=== PATIENT | female | born 1970 | race Hispanic/Latino ===

== ENCOUNTER 2016-07-22 02:39 | Emergency (ER) | payer OTHER ==
[2016-07-22 03:08] LABS: Basophils % (Auto) 0.4 % (0.0-1.8); Eosinophils % (Auto) 3.8 % (0.0-4.3); Mean Corpuscular HGB Conc 33 % (30-34); Mean Corpuscular Hemoglobin 30 pg (28-32); Mean Corpuscular Volume 89 fl (79-97); Red Blood Count 5.05 M/mm3 (3.65-5.03); Red Cell Distribution Width 14.6 % (13.2-15.2)
[2016-07-22 03:30] LABS: Blood Urea Nitrogen 4 mg/dL (7-17); Calcium 9.2 mg/dL (8.4-10.2); Carbon Dioxide 22 mmol/L (22-30); Glucose 83 mg/dL (65-100)
[2016-07-22 03:31] LABS: Chloride 93.3 mmol/L (98-107); Potassium 3.7 mmol/L (3.6-5.0); Sodium 135 mmol/L (137-145)
[2016-07-22 03:43] LABS: Anion Gap 23 mmol/L
[2016-07-22 03:46] LABS: Urine Drugs of Abuse Note Disclamer
[2016-07-22 03:56] LABS: Bacteria,Urine 2+ /HPF (Negative); Bilirubin,Urine NEG (Negative); Blood,Urine SM (Negative); Ketones,Urine NEG (Negative); Leukocyte Esterase,Urine LG (Negative); Mucus,Urine 1+ /HPF; Nitrite,Urine NEG (Negative); Protein,Urine <15 mg/dL mg/dL (Negative); Urobilinogen,Urine < 2.0 mg/dL (<2.0)
[2016-07-22 04:20] LABS: Platelet Count 352 K/mm3 (140-440)
--- NOTE | 2016-07-22 05:21 | Emergency Department Report ---
ED Psych HPI - General Chief Complaint: Psych Stated Complaint: MH, SUICIDE Time Seen by Provider: 07/22/16 05:11 Source: patient Mode of arrival: Ambulatory Limitations: Altered Mental Status - History of Present Illness Initial Comments: 46-year-old female presents to the emergency department for mental health evaluation. Per report, the patient was dropped off at the front door by a friend. Reportedly, the patient has been stating all day that she wants to kill herself. No plan has been expressed. Further history is unable to be obtained from patient due to her current clinical condition. MD Complaint: suicidal ideation -: unknown Associated Psychiatric Symptoms: racing thoughts History of same: Yes Quality: constant Improves With: none Worsens With: none - Related Data Home Medications Medication Instructions Recorded Confirmed Last Taken ALPRAZolam [Xanax TAB] 2 mg PO PRN PRN 03/03/16 07/22/16 Unknown Cogentin 0 mg PO DAILY 03/03/16 07/22/16 Unknown Venlafaxine [Effexor] 75 mg PO DAILY 03/03/16 07/22/16 Unknown risperiDONE [RisperDAL] 2 mg PO BID 03/03/16 07/22/16 Unknown Allergies Allergy/AdvReac Type Severity Reaction Status Date / Time No Known Allergies Allergy Verified 03/03/16 18:03 ED Review of Systems ROS: Stated complaint: MH, SUICIDE Other details as noted in HPI Comment: Unobtainable due to pts medical conditions ED Past Medical Hx - Past Medical History Previous Medical History?: Yes Hx Heart Attack/AMI: Yes (2014) Hx Psychiatric Treatment: Yes (schizophrenia, bipolar) Additional medical history: High cholesterol - Surgical History Past Surgical History?: Yes Hx Breast Surgery: Yes (augmentation) Additional Surgical History: L leg-ortho. cesearen x2 - Family History Family history: no significant - Social History Smoking Status: Current Every Day Smoker Substance Use Type: Alcohol - Medications Home Medications: Home Medications Medication Instructions Recorded Confirmed Last Taken Type ALPRAZolam [Xanax TAB] 2 mg PO PRN PRN 03/03/16 07/22/16 Unknown History Cogentin 0 mg PO DAILY 03/03/16 07/22/16 Unknown History Venlafaxine [Effexor] 75 mg PO DAILY 03/03/16 07/22/16 Unknown History risperiDONE [RisperDAL] 2 mg PO BID 03/03/16 07/22/16 Unknown History ED Physical Exam - General Limitations: No Limitations General appearance: alert, in no apparent distress - Head Head exam: Present: atraumatic, normocephalic - Eye Eye exam: Present: normal appearance, PERRL, EOMI - ENT ENT exam: Present: normal exam, normal orophraynx, mucous membranes moist - Neck Neck exam: Present: normal inspection, full ROM. Absent: tenderness - Respiratory Respiratory exam: Present: normal lung sounds bilaterally. Absent: respiratory distress - Cardiovascular Cardiovascular Exam: Present: regular rate, normal rhythm, normal heart sounds - GI/Abdominal GI/Abdominal exam: Present: soft, normal bowel sounds. Absent: distended, tenderness - Extremities Exam Extremities exam: Present: normal inspection, full ROM. Absent: tenderness - Back Exam Back exam: Present: normal inspection, full ROM. Absent: tenderness - Neurological Exam Neurological exam: Present: alert, oriented X3. Absent: motor sensory deficit - Psychiatric Psychiatric exam: Present: agitated, suicidal ideation, other (Reising, tangential thought process noted.) - Skin Skin exam: Present: warm, dry, intact ED Course Vital Signs 07/22/16 07/22/16 02:46 04:44 Temperature 97.6 F 98.0 F Pulse Rate 99 H 98 H Respiratory 18 18 Rate Blood Pressure 145/101 Blood Pressure 116/85 [Left] O2 Sat by Pulse 100 98 Oximetry - Reevaluation(s) Reevaluation #1: 07/22/16 05:24 Lab results reviewed. Patient has been medically cleared. Form 1013 has been signed and placed on the chart. Patient is waiting mental health evaluation for inpatient placement. ED Medical Decision Making - Lab Data Result diagrams: 07/22/16 02:47 07/22/16 02:47 - EKG Data -: EKG Interpreted by Me EKG shows normal: sinus rhythm, axis, QRS complexes, ST-T waves Rate: normal - EKG Data When compared to previous EKG there are: no significant change Interpretation: unchanged when compared t (03/03/2016), other (prolonged QT interval) - Differential Diagnosis suicidal ideation, schizoaffective disorder Critical care attestation.: If time is entered above; I have spent that time in minutes in the direct care of this critically ill patient, excluding procedure time. ED Disposition Clinical Impression: Suicidal ideations, Methamphetamine abuse Schizoaffective disorder Qualifiers: Schizoaffective disorder type: bipolar Qualified Code(s): F25.0 - Schizoaffective disorder, bipolar type Disposition: DC/TX PSY HOSP/PSY UNIT Is pt being admited?: No Condition: Stable Time of Disposition: 05:25
[2016-07-22] MEDS ORDERED: ATIVAN IM ONE (18:18)
[2016-07-22] MEDS ORDERED: TYLENOL PO PRN (18:18)
[2016-07-22] MEDS ORDERED: ALUM-MAG HYDROX-SIMETH 200-200-20MG/5ML PO PRN (18:18)
[2016-07-22] MEDS ORDERED: MILK OF MAGNESIA PO PRN (18:18)
[2016-07-22] MEDS ORDERED: XANAX PO PRN (20:00)
[2016-07-22] MEDS ORDERED: NON-FORMULARY (Alprazolam [Xanax Tab] 2 MG) PO PRN (20:00)
[2016-07-22] MEDS ORDERED: NON-FORMULARY (Risperidone [Risperdal] 2 MG) PO SCH (22:00)
[2016-07-22] MEDS: RisperDAL PO SCH (22:27)
[2016-07-23] MEDS: RisperDAL PO SCH ×2 (10:06→22:00)
[2016-07-23] MEDS: ATIVAN IM PRN (17:16)
[2016-07-24] MEDS: RisperDAL PO SCH ×2 (10:16→22:16)
[2016-07-24] MEDS: ATIVAN IM PRN (12:54)
[2016-07-25] MEDS: RisperDAL PO SCH ×2 (10:04→22:33)
[2016-07-25] MEDS: ATIVAN IM PRN (10:04)
[2016-07-25] MEDS ORDERED: XANAX ONE (13:37)
[2016-07-26 01:57] VITALS: BP 128/81
[2016-07-26] MEDS ORDERED: TESSALON PERLES PO ONE ×2 (06:31→06:33)
[2016-07-26] MEDS: RisperDAL PO SCH (10:05)
--- NOTE | 2016-07-26 15:50 | Emergency Department Report ---
Blank Doc - Documentation Documentation: Patient has been reevaluated by mental health. Patient is back at her baseline. She partakes in an intensive outpatient program in [facility]. Form 1013 has been rescinded per mental health recommendation. Patient will be discharged home at this time.
== END 2016-07-26 16:35 | disposition home or self-care (01) ==
LOC: ED 02:39 → EEVIPCON 02:39 → ED 07-26 16:35
DX: F25.0 Schizoaffective disorder, bipolar type (principal); R45.851 Suicidal ideations; F15.10 Other stimulant abuse, uncomplicated; I25.2 Old myocardial infarction; E78.00 Pure hypercholesterolemia, unspecified; F17.200 Nicotine dependence, unspecified, uncomplicated
CPT/HCPCS: 36415; 80048; 80307; 81001; 81025; 85025; 93005; 93010; 96372; 99285; G0480; J2060; 80320

== ENCOUNTER 2016-08-29 17:36 | Emergency (ER) | payer SELFPAY ==
--- NOTE | 2016-08-29 18:12 | Emergency Department Report ---
Chief Complaint: Psych Stated Complaint: SUICIDAL Time Seen by Provider: 08/29/16 18:09 - HPI History of Present Illness: Patient here reports that she's feeling suicidal . She does not have a plan. Patient is a poor historian. She is complaining of auditory and visual hallucination. Denies homicidal ideation. She also reported that she is a cough for the last 2 weeks. She reports that she is homeless and she doesn't have any mental health provider. She has a history of depression and she has not taken any medication. Patient reports that she just needs some help. - ROS Review of Systems: All systems are negative unless stated in HPI above. - Exam Vital Signs: Vital Signs 08/29/16 17:53 Temperature 98.0 F Pulse Rate 97 H Respiratory 20 Rate Blood Pressure 158/81 O2 Sat by Pulse 100 Oximetry Physical Exam: General: This is a 46-year-old female well-nourished. Appears sad. Psych: Positive suicidal ideation without a plan. Positive hallucination. Negative homicidal ideation. MSE screening note: Focused history and physical exam performed. Due to findings the following was ordered:see [facility] ED Medical Decision Making - Medical Decision Making Medical decision making: Patient seen by provider in triage area. Appropriate protocol activated and patient to main ED to be seen by physician. ED Disposition for MSE Condition: Stable
[2016-08-29 18:52] LABS: Urine Drugs of Abuse Note Disclamer
[2016-08-29 19:00] LABS: Bilirubin,Urine NEG (Negative); Blood,Urine NEG (Negative); Ketones,Urine 20 mg/dL (Negative); Leukocyte Esterase,Urine LG (Negative); Nitrite,Urine NEG (Negative); Protein,Urine <15 mg/dL mg/dL (Negative); Urobilinogen,Urine < 2.0 mg/dL (<2.0)
--- NOTE | 2016-08-29 19:11 | Emergency Department Report ---
ED Psych HPI - General Chief Complaint: Psych Stated Complaint: SUICIDAL Time Seen by Provider: 08/29/16 18:09 Source: patient Mode of arrival: Ambulatory - History of Present Illness Initial Comments: Patient here reports that she's feeling suicidal . She does not have a plan. Patient is a poor historian. She is complaining of auditory and visual hallucination. Denies homicidal ideation. She also reported that she is a cough for the last 2 weeks. She reports that she is homeless and she doesn't have any mental health provider. She has a history of depression and she has not taken any medication. Patient reports that she just needs some help. MD Complaint: suicidal ideation, feels depressed -: month(s) Associated Psychiatric Symptoms: depression, suicidal ideation, auditory hallucinations, visual hallucinations History of same: Yes Quality: constant Improves With: none Worsens With: none Context: other (patient has a history of methamphetamine use but she says she has not used any for a while. Denies any other use of street drugs.) Associated Symptoms: nausea, vomiting, insomnia. denies: confusion, headache, shortness of breath, syncope Treatments Prior to Arrival: none If Self Harm: admits thoughts of - Related Data Home Medications Medication Instructions Recorded Confirmed Last Taken ALPRAZolam [Xanax TAB] 2 mg PO PRN PRN 03/03/16 08/29/16 Unknown Venlafaxine [Effexor] 75 mg PO DAILY 03/03/16 08/29/16 Unknown risperiDONE [RisperDAL] 2 mg PO BID 03/03/16 08/29/16 Unknown Benztropine [Cogentin] 0.5 mg PO QHS 08/29/16 08/29/16 Unknown Allergies Allergy/AdvReac Type Severity Reaction Status Date / Time No Known Allergies Allergy Verified 08/29/16 17:51 ED Review of Systems ROS: Stated complaint: SUICIDAL Other details as noted in HPI Comment: All other systems reviewed and negative Constitutional: denies: chills, fever ENT: other (mucous membranes dry ). denies: throat pain, congestion Respiratory: no symptoms reported Cardiovascular: denies: chest pain, palpitations, dyspnea on exertion, orthopnea , edema, syncope Gastrointestinal: nausea, vomiting. denies: abdominal pain, diarrhea, constipation Genitourinary: denies: urgency, dysuria, frequency, hematuria, discharge, abnormal menses, dyspareunia Neurological: denies: headache, weakness, numbness, paresthesias, confusion, abnormal gait, vertigo Psychiatric: depression, visual hallucinations, suicidal thoughts. denies: anxiety, homicidal thoughts ED Past Medical Hx - Past Medical History Previous Medical History?: Yes Hx Heart Attack/AMI: Yes (2014) Hx Psychiatric Treatment: Yes (PARANOID schizophrenia, bipolar) Additional medical history: High cholesterol - Surgical History Past Surgical History?: Yes Hx Breast Surgery: Yes (augmentation) Additional Surgical History: L leg-ortho. cesearen x2 - Family History Family history: hypertension - Social History Smoking Status: Current Every Day Smoker Substance Use Type: Alcohol - Medications Home Medications: Home Medications Medication Instructions Recorded Confirmed Last Taken Type ALPRAZolam [Xanax TAB] 2 mg PO PRN PRN 03/03/16 08/29/16 Unknown History Venlafaxine [Effexor] 75 mg PO DAILY 03/03/16 08/29/16 Unknown History risperiDONE [RisperDAL] 2 mg PO BID 03/03/16 08/29/16 Unknown History Benztropine [Cogentin] 0.5 mg PO QHS 08/29/16 08/29/16 Unknown History ED Physical Exam - General Limitations: No Limitations General appearance: alert, in no apparent distress - Head Head exam: Present: atraumatic, normocephalic, normal inspection - Eye Eye exam: Present: normal appearance, PERRL, EOMI. Absent: periorbital swelling , periorbital tenderness Pupils: Present: normal accommodation - ENT ENT exam: Present: normal orophraynx, mucous membranes dry, TM's normal bilaterally, normal external ear exam - Neck Neck exam: Present: normal inspection, full ROM. Absent: tenderness, meningismus, lymphadenopathy - Respiratory Respiratory exam: Present: normal lung sounds bilaterally. Absent: respiratory distress, chest wall tenderness - Cardiovascular Cardiovascular Exam: Present: regular rate, normal rhythm, normal heart sounds - GI/Abdominal GI/Abdominal exam: Present: soft, normal bowel sounds. Absent: distended, tenderness, guarding, rebound, rigid - Extremities Exam Extremities exam: Present: normal inspection, full ROM, normal capillary refill. Absent: tenderness, pedal edema, joint swelling, calf tenderness - Back Exam Back exam: Present: normal inspection, full ROM. Absent: tenderness, CVA tenderness (R), CVA tenderness (L), muscle spasm, paraspinal tenderness, vertebral tenderness, rash noted - Neurological Exam Neurological exam: Present: alert, oriented X3, normal gait, reflexes normal. Absent: motor sensory deficit - Psychiatric Psychiatric exam: Present: depressed, flat affect, suicidal ideation. Absent: agitated, anxious, manic, homicidal ideation - Skin Skin exam: Present: warm, dry, intact, normal color. Absent: rash ED Course Vital Signs 08/29/16 08/29/16 08/29/16 17:53 19:13 19:45 Temperature 98.0 F 98.2 F Pulse Rate 97 H 126 H Respiratory 20 18 20 Rate Blood Pressure 158/81 Blood Pressure 152/92 [Left] O2 Sat by Pulse 100 99 99 Oximetry - Reevaluation(s) Reevaluation #1: 08/29/16 21:07 Patient to receive IV fluids 1 L with Zofran IV. Reevaluation #2: 08/29/16 21:08 Urine positive for amphetamines, cocaine and marijuana. [address] Rao 08/29/16 21:08 Reevaluation #3: 08/30/16 00:03 Patient stable. Seen by mental health for evaluation. Med reconciliation completed. Currently receiving IV fluid and received Zofran 4 mg IV. ED Medical Decision Making - Lab Data Result diagrams: 08/29/16 19:10 08/29/16 19:10 Lab Results 08/29/16 08/29/16 08/29/16 Range/Units 18:47 18:47 19:10 WBC (4.5-11.0) K/mm3 RBC (3.65-5.03) M/mm3 Hgb (10.1-14.3) gm/dl Hct (30.3-42.9) % MCV (79-97) fl MCH (28-32) pg MCHC (30-34) % RDW (13.2-15.2) % Plt Count (140-440) K/mm3 Lymph % (Auto) (13.4-35.0) % [place] % (Auto) (0.0-7.3) % Eos % (Auto) (0.0-4.3) % Baso % (Auto) (0.0-1.8) % Lymph # (1.2-5.4) K/mm3 [place] # (0.0-0.8) K/mm3 Eos # (0.0-0.4) K/mm3 Baso # (0.0-0.1) K/mm3 Seg Neutrophils % (40.0-70.0) % Seg Neutrophils # (1.8-7.7) K/mm3 Sodium 134 L (137-145) mmol/L Potassium 3.5 L (3.6-5.0) mmol/L Chloride 89.1 L (98-107) mmol/L Carbon Dioxide 24 (22-30) mmol/L Anion Gap 24 mmol/L BUN 7 (7-17) mg/dL Creatinine 0.6 L (0.7-1.2) mg/dL Estimated GFR > 60 ml/min BUN/Creatinine Ratio 11.66 % Glucose 108 H (65-100) mg/dL Calcium 9.2 (8.4-10.2) mg/dL Urine Color Yellow (Yellow) Urine Turbidity Slightly-cloudy (Clear) Urine pH 6.0 (5.0-7.0) Ur Specific [place] 1.017 (1.003-1.030) Urine Protein <15 mg/dl (Negative) mg/dL Urine Glucose (UA) Neg (Negative) mg/dL Urine Ketones 20 (Negative) mg/dL Urine Blood Neg (Negative) Urine Nitrite Neg (Negative) Urine Bilirubin Neg (Negative) Urine Urobilinogen < 2.0 (<2.0) mg/dL Ur Leukocyte Esterase Lg (Negative) Urine WBC (Auto) 6.0 (0.0-6.0) /HPF Urine RBC (Auto) 13.0 (0.0-6.0) /HPF U Epithel Cells (Auto) 9.0 (0-13.0) /HPF Urine HCG, Qual Negative (Negative) Urine Opiates Screen Presumptive negative Urine Methadone Screen Presumptive negative Ur Barbiturates Screen Presumptive negative Ur Phencyclidine Scrn Presumptive negative Ur Amphetamines Screen Presumptive positive U Benzodiazepines Scrn Presumptive negative Urine Cocaine Screen Presumptive positive U Marijuana (THC) Screen Presumptive positive Drugs of Abuse Note Disclamer Plasma/Serum Alcohol (0-0.07) gm% 08/29/16 08/29/16 Range/Units 19:10 19:10 WBC 8.8 (4.5-11.0) K/mm3 RBC 4.30 (3.65-5.03) M/mm3 Hgb 12.8 (10.1-14.3) gm/dl Hct 38.3 (30.3-42.9) % MCV 89 (79-97) fl MCH 30 (28-32) pg MCHC 34 (30-34) % RDW 15.3 H (13.2-15.2) % Plt Count 360 (140-440) K/mm3 Lymph % (Auto) 11.8 L (13.4-35.0) % [place] % (Auto) 9.3 H (0.0-7.3) % Eos % (Auto) 0.1 (0.0-4.3) % Baso % (Auto) 0.2 (0.0-1.8) % Lymph # 1.0 L (1.2-5.4) K/mm3 [place] # 0.8 (0.0-0.8) K/mm3 Eos # 0.0 (0.0-0.4) K/mm3 Baso # 0.0 (0.0-0.1) K/mm3 Seg Neutrophils % 78.6 H (40.0-70.0) % Seg Neutrophils # 6.9 (1.8-7.7) K/mm3 Sodium (137-145) mmol/L Potassium (3.6-5.0) mmol/L Chloride (98-107) mmol/L Carbon Dioxide (22-30) mmol/L Anion Gap mmol/L BUN (7-17) mg/dL Creatinine (0.7-1.2) mg/dL Estimated GFR ml/min BUN/Creatinine Ratio % Glucose (65-100) mg/dL Calcium (8.4-10.2) mg/dL Urine Color (Yellow) Urine Turbidity (Clear) Urine pH (5.0-7.0) Ur Specific [place] (1.003-1.030) Urine Protein (Negative) mg/dL Urine Glucose (UA) (Negative) mg/dL Urine Ketones (Negative) mg/dL Urine Blood (Negative) Urine Nitrite (Negative) Urine Bilirubin (Negative) Urine Urobilinogen (<2.0) mg/dL Ur Leukocyte Esterase (Negative) Urine WBC (Auto) (0.0-6.0) /HPF Urine RBC (Auto) (0.0-6.0) /HPF U Epithel Cells (Auto) (0-13.0) /HPF Urine HCG, Qual (Negative) Urine Opiates Screen Urine Methadone Screen Ur Barbiturates Screen Ur Phencyclidine Scrn Ur Amphetamines Screen U Benzodiazepines Scrn Urine Cocaine Screen U Marijuana (THC) Screen Drugs of Abuse Note Plasma/Serum Alcohol < 0.01 (0-0.07) gm% - Medical Decision Making Collaborate with Dr. Salvador ED course: Patient presented to emergency room with complaints of suicidal ideation without a plan.She is homeless and also complaining of nausea. Reports that she's not swallowed a mental health or psychiatry for a while because she is homeless. Denies taking any medication at present. Patient in emergency room awaiting placement to mental health facility. Medication reconciliation done by Dr. Salvador. Patient is currently receiving IV fluid and received Zofran 4 mg IV for nausea. Lab results positive for marijuana, amphetamines and cocaine. Potassium and sodium mildly decreased. Patient stable. Critical care attestation.: If time is entered above; I have spent that time in minutes in the direct care of this critically ill patient, excluding procedure time. ED Disposition Clinical Impression: Suicidal ideations, Polysubstance abuse, Nausea alone, Hallucination Schizoaffective disorder Qualifiers: Schizoaffective disorder type: unspecified Qualified Code(s): F25.9 - Schizoaffective disorder, unspecified Disposition: DC/TX PSY HOSP/PSY UNIT Is pt being admited?: No Does the pt Need Aspirin: No Condition: Stable Referrals: PRIMARY CARE, [Primary Care Provider] - 3-5 Days
[2016-08-29] MEDS ORDERED: ZOFRAN IV ONE (19:13)
[2016-08-29] MEDS ORDERED: NACL 0.9% 1000 ML IV ONE (19:13)
[2016-08-29 19:26] LABS: Basophils % (Auto) 0.2 % (0.0-1.8); Eosinophils % (Auto) 0.1 % (0.0-4.3); Hematocrit 38.3 % (30.3-42.9); Hemoglobin 12.8 gm/dl (10.1-14.3); Mean Corpuscular HGB Conc 34 % (30-34); Mean Corpuscular Hemoglobin 30 pg (28-32); Mean Corpuscular Volume 89 fl (79-97); Platelet Count 360 K/mm3 (140-440); Red Cell Distribution Width 15.3 % (13.2-15.2); White Blood Count 8.8 K/mm3 (4.5-11.0)
[2016-08-29 19:45] LABS: Anion Gap 24 mmol/L; BUN/Creatinine Ratio 11.66; Blood Urea Nitrogen 7 mg/dL (7-17); Calcium 9.2 mg/dL (8.4-10.2); Carbon Dioxide 24 mmol/L (22-30); Chloride 89.1 mmol/L (98-107); Glucose 108 mg/dL (65-100); Potassium 3.5 mmol/L (3.6-5.0); Sodium 134 mmol/L (137-145)
[2016-08-29] MEDS ORDERED: NON-FORMULARY (Alprazolam [Xanax Tab] 2 MG) PO PRN (23:24)
[2016-08-29] MEDS ORDERED: NON-FORMULARY (Risperidone [Risperdal] 2 MG) PO SCH (23:25)
[2016-08-29] MEDS: RisperDAL PO SCH (23:42)
[2016-08-30] MEDS ORDERED: EFFEXOR PO SCH (10:00)
[2016-08-30] MEDS: RisperDAL PO SCH ×2 (11:03→22:35)
--- NOTE | 2016-08-30 19:45 | Event Note ---
Date: 08/30/16 Vital signs are reviewed and appreciated. Psychiatric consultation is ordered. Patient pending psychiatric placement. Vital Signs 08/29/16 08/29/16 08/29/16 17:53 19:13 19:45 Temperature 98.0 F 98.2 F Pulse Rate 97 H 126 H Respiratory 20 18 20 Rate Blood Pressure 158/81 Blood Pressure 152/92 [Left] O2 Sat by Pulse 100 99 99 Oximetry 08/30/16 08/30/16 11:04 14:00 Temperature 98.8 F Pulse Rate 87 Respiratory 18 20 Rate Blood Pressure Blood Pressure 95/64 [Left] O2 Sat by Pulse 99 99 Oximetry
--- NOTE | 2016-08-30 21:35 | Consultation ---
History of Present Illness - Reason for Consult Consult date: 08/30/16 Reason for consult: evaluation for placement - Chief Complaint Chief complaint: Suicidal ideation. Recent relapse of cannabis and meth - History of Present Psychiatric Illness This is a 46 year old domiciled female with a PPH of Bipolar Disorder with psychotic features, Cannabis Abuse, Methamphetamine Abuse, and Cocaine Abuse who presents after recently relapsing on cannabis, meth and cocaine. Patient was brought to the ER due to emergence of SI in the context of being acutely intoxicated. During my assessment, the patient notes that she was having command AH prior to using cocaine, methamphetamine and cannabis to reduce the AH. She had been unable refill her psychotropic medications for two weeks and needed to use illicit psychostimulants and cannabis to reduce her symptoms. Of course, her symptoms were actually exacerbated and she consequently developed SI and likely worsening AH. While in the ER, she psychtropic medications have been restarted and she has had some sleep consolidation and reduction in racing thoughts which accompanied her AH. She is requesting to transfer to an acute psychiatric facility for further support to address her most recent episode of psychosis which was exacerbated by illicit substance abuse. She understands that she is uninsured and will likely go to a state hospital if we decided to transfer her to an emergency receiving facility. Medications and Allergies Allergies Allergy/AdvReac Type Severity Reaction Status Date / Time No Known Allergies Allergy Verified 08/29/16 17:51 Home Medications Medication Instructions Recorded Confirmed Last Taken Type ALPRAZolam [Xanax TAB] 2 mg PO PRN PRN 03/03/16 08/29/16 Unknown History Venlafaxine [Effexor] 75 mg PO DAILY 03/03/16 08/29/16 Unknown History risperiDONE [RisperDAL] 2 mg PO BID 03/03/16 08/29/16 Unknown History Benztropine [Cogentin] 0.5 mg PO QHS 08/29/16 08/29/16 Unknown History Active Meds: Active Medications Benztropine Mesylate (Cogentin) 0.5 mg PO QHS [facility] Miscellaneous Medication (Alprazolam [Xanax Tab]) 2 mg PO PRN PRN PRN Reason: Anxiety Risperidone (Risperdal) 2 mg PO BID [facility] Last Admin: 08/30/16 11:03 Dose: 2 mg Venlafaxine HCl (Effexor) 75 mg PO DAILY [facility] Last Admin: 08/30/16 11:03 Dose: Not Given Mental Status Exam - Vital signs Last Vital Signs Temp 98.8 F 08/30/16 11:04 Pulse 87 08/30/16 11:04 Resp 20 08/30/16 14:00 BP 95/64 08/30/16 11:04 Pulse Ox 99 08/30/16 14:00 - Exam Orientation: time, place, person Affect: anxious Mood: fearful, anxious Thought content: paranoia Thought Process: Intact Perceptions: auditory Speech: normal rate and pattern Concentration: distractible Motor activity: lethargic Level of consciousness: alert Memory: Intact Sleep Symptoms: Insomnia Interaction: cooperative Results Result Diagrams: 08/29/16 19:10 08/29/16 19:10 All other labs normal. Assessment and Plan Assessment and plan: This is a 46 year old domiciled uninsured female with a PPH of Bipolar Disorder with psychotic features who had a psychotic episode secondary to abrupt discontinuation of her medication due to inability to refill them which was likely exacerbated with subsequent substance abuse. At the present time, she remains symptomatic with psychotic and mood symptoms, which have been minimally attenuated by reinitiating her psychotropic regimen. The patient would like to voluntarily engage in treatment for her psychotic symptoms and address her persistent difficulties with periodic cocaine, cannabis and amphetamine abuse. We will attempt to transfer her to a facility willing to provide her this treatment in spite of her being uninsured. She will likely require a transfer to [facility]. While she is in the ER we will help to manage her symptoms by aggressively using psychotropic medications to quickly attenuate her symptoms affective and psychotic symptoms.
[2016-08-30] MEDS: COGENTIN PO SCH (22:46)
[2016-08-31] MEDS: RisperDAL PO SCH ×2 (10:48→22:21)
--- NOTE | 2016-08-31 17:56 | Event Note ---
Date: 08/31/16 Vital signs are reviewed and appreciated. Patient awaiting psychiatric placement. Vital Signs 08/29/16 08/29/16 08/29/16 17:53 19:13 19:45 Temperature 98.0 F 98.2 F Pulse Rate 97 H 126 H Respiratory 20 18 20 Rate Blood Pressure 158/81 Blood Pressure 152/92 [Left] O2 Sat by Pulse 100 99 99 Oximetry 08/30/16 08/30/16 08/30/16 11:04 14:00 19:40 Temperature 98.8 F Pulse Rate 87 Respiratory 18 20 12 Rate Blood Pressure Blood Pressure 95/64 [Left] O2 Sat by Pulse 99 99 98 Oximetry 08/30/16 08/31/16 21:44 11:00 Temperature 99.0 F 98.7 F Pulse Rate 100 H 78 Respiratory 14 18 Rate Blood Pressure Blood Pressure 95/40 96/53 [Left] O2 Sat by Pulse 98 99 Oximetry
[2016-08-31] MEDS: COGENTIN PO SCH (22:21)
[2016-09-01] MEDS: RisperDAL PO SCH (10:10)
[2016-09-01 12:44] VITALS: BP 110/99
--- NOTE | 2016-09-01 13:43 | Event Note ---
Date: 09/01/16 Vital signs and nursing note was reviewed and patient is awaiting transfer to a psychiatric facility.
--- NOTE | 2016-09-01 17:04 | Progress Note ---
<JOCELYN PILLAI E - Last Filed: 09/01/16 17:11> Subjective - Reason for Consult Consult date: 09/01/16 Reason for consult: follow up - Chief Complaint Chief complaint: Suicidal ideation. Recent relapse of cannabis and meth Mental Status Exam - Vital signs Last Vital Signs Temp 97.7 F 09/01/16 10:00 Pulse 95 H 09/01/16 10:00 Resp 18 09/01/16 10:00 BP 110/99 09/01/16 10:00 Pulse Ox 99 09/01/16 10:00 - Exam Narrative exam: She denies suicidal or homicidal ideation. She acknowledges paranoia. Orientation: time, place, person Affect: anxious Mood: congruent with affect Thought content: paranoia Thought Process: Goal Oriented Perceptions: auditory (denies command hallucinations) Speech: normal rate and pattern Concentration: focused Motor activity: normal Level of consciousness: alert Memory: Intact Sleep Symptoms: None Interaction: guarded Assessment and Plan At the time of interview, Ms. Chakraborty does not present as an imminent risk of harm to herself or others. She has goal oriented thinking and plans to follow up at [facility] outpatient mental health services for therapy and medication management. She currently does not meet inpatient criteria. She would be appropriate for [facility] or [facility] services. - Patient Problems (1) Schizoaffective disorder Status: Acute QualifierTitle: Schizoaffective disorder type: unspecified Qualified Code (s): F25.9 - Schizoaffective disorder, unspecified <NENA SCHMID - Last Filed: 09/01/16 18:00> Mental Status Exam - Vital signs Last Vital Signs Temp 97.7 F 09/01/16 10:00 Pulse 95 H 09/01/16 10:00 Resp 18 09/01/16 10:00 BP 110/99 09/01/16 10:00 Pulse Ox 99 09/01/16 10:00 Assessment and Plan I have seen this patient again today and discussed it with Jocelyn Pillai. Over the past several days, Ms. Chakraborty's presentation has changed and she is much less symptomatic at the current time. Consequently, she is no longer a danger to her self and she has consistently verbalized thoughts about her future. She plans on getting on the [place] today to meet her daughter in the [facility] and then driving back to her home. She understands that cocaine, meth and cannabis have a deleterious effect on her mental health and she is in the pre-contemplative stages of quitting. The 1013 has been rescinded and she can discharge back in the community with outpatient resources.
--- NOTE | 2016-09-01 18:28 | Event Note ---
Date: 09/01/16 The patient is interviewed by myself. She is alert and oriented 3. She is clinically sober, has a GCS of 15, NIH score of 0. She is not homicidal and suicidal. She exhibits appropriate decision making capacity. Myself and psychiatry agreed that patient can be safely taken off of her 1013/involuntary hold. The patient is going to take public transportation to go up to her daughter. She will be discharged at this time. She is instructed to discontinue consumption of illegal drugs. Vital Signs 08/29/16 08/29/16 08/29/16 17:53 19:13 19:45 Temperature 98.0 F 98.2 F Pulse Rate 97 H 126 H Respiratory 20 18 20 Rate Blood Pressure 158/81 Blood Pressure 152/92 [Left] O2 Sat by Pulse 100 99 99 Oximetry 08/30/16 08/30/16 08/30/16 11:04 14:00 19:40 Temperature 98.8 F Pulse Rate 87 Respiratory 18 20 12 Rate Blood Pressure Blood Pressure 95/64 [Left] O2 Sat by Pulse 99 99 98 Oximetry 08/30/16 08/31/16 08/31/16 21:44 11:00 22:00 Temperature 99.0 F 98.7 F 98.8 F Pulse Rate 100 H 78 72 Respiratory 14 18 18 Rate Blood Pressure Blood Pressure 95/40 96/53 98/60 [Left] O2 Sat by Pulse 98 99 98 Oximetry 09/01/16 10:00 Temperature 97.7 F Pulse Rate 95 H Respiratory 18 Rate Blood Pressure Blood Pressure 110/99 [Left] O2 Sat by Pulse 99 Oximetry
== END 2016-09-01 18:58 | disposition home or self-care (01) ==
LOC: EEVIPCON 17:36 → ED 17:36
DX: R45.851 Suicidal ideations (principal); F25.9 Schizoaffective disorder, unspecified; F19.10 Other psychoactive substance abuse, uncomplicated; R44.0 Auditory hallucinations; R44.1 Visual hallucinations; R11.0 Nausea; I25.2 Old myocardial infarction; F31.9 Bipolar disorder, unspecified; E78.00 Pure hypercholesterolemia, unspecified; F17.200 Nicotine dependence, unspecified, uncomplicated
CPT/HCPCS: 36415; 80048; 80307; 81001; 81025; 85025; 87086; 96361; 96374; 99284; G0480; J2405; J7030; 80320

== ENCOUNTER 2016-11-15 01:00 | Emergency (ER) | payer SELFPAY ==
[2016-11-15 02:12] LABS: Basophils % (Auto) 0.5 % (0.0-1.8); Eosinophils % (Auto) 0.7 % (0.0-4.3); Hematocrit 38.9 % (30.3-42.9); Hemoglobin 12.8 gm/dl (10.1-14.3); Mean Corpuscular HGB Conc 33 % (30-34); Mean Corpuscular Hemoglobin 30 pg (28-32); Mean Corpuscular Volume 91 fl (79-97); Platelet Count 317 K/mm3 (140-440); Red Blood Count 4.29 M/mm3 (3.65-5.03); Red Cell Distribution Width 14.5 % (13.2-15.2); White Blood Count 9.1 K/mm3 (4.5-11.0)
[2016-11-15 02:31] LABS: Alanine Aminotransferase 14 units/L (7-56); Albumin 4.4 g/dL (3.9-5); Albumin/Globulin Ratio 1.5 %; Alkaline Phosphatase 95 units/L (35-129); Anion Gap 19 mmol/L; BUN/Creatinine Ratio 16.66; Blood Urea Nitrogen 15 mg/dL (7-17); Calcium 9.4 mg/dL (8.4-10.2); Carbon Dioxide 28 mmol/L (22-30); Glucose 115 mg/dL (65-100); Lipase 32 units/L (13-60); Potassium 4.9 mmol/L (3.6-5.0); Sodium 136 mmol/L (137-145); Total Protein 7.4 g/dL (6.3-8.2)
[2016-11-15 03:19] LABS: Bacteria,Urine 1+ /HPF (Negative); Bilirubin,Urine NEG (Negative); Blood,Urine SM (Negative); Ketones,Urine TR mg/dL (Negative); Leukocyte Esterase,Urine LG (Negative); Mucus,Urine FEW /HPF; Nitrite,Urine NEG (Negative); Protein,Urine <15 mg/dL mg/dL (Negative); Urobilinogen,Urine < 2.0 mg/dL (<2.0)
[2016-11-15] MEDS ORDERED: TYLENOL PO ONE (05:04)
[2016-11-15] MEDS ORDERED: ULTRAM PO ONE (10:01)
--- NOTE | 2016-11-15 10:05 | Emergency Department Report ---
ED General Adult HPI - General Chief complaint: Chest Pain Stated complaint: DOG BITE/CHEST PAIN/HEART FLUTTER/BOB Time Seen by Provider: 11/15/16 09:51 Source: patient, EMS, RN notes reviewed, old records reviewed Mode of arrival: Stretcher Limitations: No Limitations - History of Present Illness Initial comments: 46-year-old female presents to the emergency department via EMS difficulty breathing and a dog bite. Patient states that she has been having shortness of breath since yesterday. She reports cough productive of clear sputum. There has been no fever. She also reports that she was bitten by a dog on her left leg. She states she had been chasing the dog when it turned and bit her. Review of the triage note complaining of epigastric pain that had been intermittent for one year. When asked about this, the patient states that "it was nothing" and refuses to elaborate on this pain. She denies nausea, vomiting , or diarrhea. There are no other complaints. -: Gradual, days(s) (1) Location: chest Radiation: non-radiation Severity scale (0 -10): 0 Consistency: constant Improves with: none Worsens with: none Treatments Prior to Arrival: none - Related Data Home Medications Medication Instructions Recorded Confirmed Last Taken Venlafaxine [Effexor] 75 mg PO DAILY 03/03/16 11/15/16 Unknown risperiDONE [RisperDAL] 1 mg PO QHS 03/03/16 11/15/16 Unknown Previous Rx's Medication Instructions Recorded Last Taken Type Azithromycin [Zithromax Z-YULISA] 250 mg PO DAILY #6 tablet 11/15/16 Unknown Rx Benzonatate [Tessalon Perles] 100 mg PO Q8HR #30 capsule 11/15/16 Unknown Rx HYDROcodone/APAP 5-325 [[place] 1 each PO Q6HR PRN #12 tablet 11/15/16 Unknown Rx 5/325] Allergies Allergy/AdvReac Type Severity Reaction Status Date / Time No Known Allergies Allergy Verified 08/29/16 17:51 ED Review of Systems ROS: Stated complaint: DOG BITE/CHEST PAIN/HEART FLUTTER/BOB Other details as noted in HPI Comment: All other systems reviewed and negative Respiratory: cough, shortness of breath Skin: as per HPI (dog bite) ED Past Medical Hx - Past Medical History Previous Medical History?: Yes Hx Heart Attack/AMI: Yes (2015) Hx Psychiatric Treatment: Yes (PARANOID schizophrenia, bipolar) Additional medical history: High cholesterol - Surgical History Past Surgical History?: Yes Hx Breast Surgery: Yes (augmentation) Additional Surgical History: L leg-ortho. cesearen x2 - Family History Family history: no significant - Social History Smoking Status: Current Every Day Smoker Substance Use Type: Alcohol - Medications Home Medications: Home Medications Medication Instructions Recorded Confirmed Last Taken Type Venlafaxine [Effexor] 75 mg PO DAILY 03/03/16 11/15/16 Unknown History risperiDONE [RisperDAL] 1 mg PO QHS 03/03/16 11/15/16 Unknown History Azithromycin [Zithromax Z-YULISA] 250 mg PO DAILY #6 tablet 11/15/16 Unknown Rx Benzonatate [Tessalon Perles] 100 mg PO Q8HR #30 capsule 11/15/16 Unknown Rx HYDROcodone/APAP 5-325 [[place] 1 each PO Q6HR PRN #12 tablet 11/15/16 Unknown Rx 5/325] ED Physical Exam - General Limitations: No Limitations General appearance: alert, in no apparent distress - Head Head exam: Present: atraumatic, normocephalic - Eye Eye exam: Present: normal appearance, PERRL, EOMI - ENT ENT exam: Present: normal exam, normal orophraynx, mucous membranes moist - Neck Neck exam: Present: normal inspection, full ROM. Absent: tenderness - Respiratory Respiratory exam: Present: wheezes (posterior bilateral basilar, wheezes clear with coughing). Absent: respiratory distress - Cardiovascular Cardiovascular Exam: Present: regular rate, normal rhythm, normal heart sounds - GI/Abdominal GI/Abdominal exam: Present: soft, normal bowel sounds. Absent: distended, tenderness - Extremities Exam Extremities exam: Present: full ROM. Absent: tenderness - Back Exam Back exam: Present: normal inspection, full ROM. Absent: tenderness - Neurological Exam Neurological exam: Present: alert, oriented X3. Absent: motor sensory deficit - Skin Skin exam: Present: warm, dry, other (multiple small puncture wounds noted to the left lateral lower extremity. No surrounding erythema. Eschar formation has occurred at each of the sites. No tenderness to palpation) ED Course Vital Signs 11/15/16 11/15/16 11/15/16 01:14 05:08 05:39 Temperature 98.3 F 98.6 F Pulse Rate 99 H 99 H Respiratory 18 18 18 Rate Blood Pressure 114/75 118/75 Blood Pressure [Left] O2 Sat by Pulse 100 98 Oximetry 11/15/16 11/15/16 09:27 09:30 Temperature 98.6 F Pulse Rate 97 H 97 H Respiratory 18 Rate Blood Pressure Blood Pressure 110/67 [Left] O2 Sat by Pulse 100 Oximetry ED Medical Decision Making - Lab Data Result diagrams: 11/15/16 01:44 11/15/16 01:44 - EKG Data -: EKG Interpreted by Me EKG shows normal: sinus rhythm, axis, QRS complexes, ST-T waves Rate: normal - EKG Data When compared to previous EKG there are: no significant change Interpretation: unchanged when compared t (07/22/2016), other (prolonged QT interval) - Radiology Data Radiology results: image reviewed interpreted by me: Chest x-ray shows no acute cardiopulmonary abnormality. - Medical Decision Making Lab and imaging results reviewed and discussed with the patient. Patient has an ECG that is unchanged from previous, with no ischemic changes. She has had 3 negative troponins and a chest x-ray with no acute findings. Patient will be discharged home at this time on pain medication for her leg. Patient will also be prescribed oral anti-biotics for her acute bronchitis due to her chronic immunosuppression from smoking. - Differential Diagnosis acute bronchitis, pneumonia, dog bite Critical care attestation.: If time is entered above; I have spent that time in minutes in the direct care of this critically ill patient, excluding procedure time. ED Disposition Clinical Impression: Acute bronchitis Qualifiers: Bronchitis organism: unspecified organism Qualified Code(s): J20.9 - Acute bronchitis, unspecified Dog bite of calf Qualifiers: Encounter type: initial encounter Laterality: left Qualified Code(s): S81.852A - Open bite, left lower leg, initial encounter; W54.0XXA - Bitten by dog, initial encounter Disposition: DISCHARGED TO HOME OR SELFCARE Is pt being admited?: No Condition: Stable Instructions: Acute Bronchitis (ED), Animal Bite (ED) Prescriptions: Azithromycin [Zithromax Z-YULISA] 250 mg PO DAILY #6 tablet Benzonatate [Tessalon Perles] 100 mg PO Q8HR #30 capsule HYDROcodone/APAP 5-325 [[place] 5/325] 1 each PO Q6HR PRN #12 tablet PRN Reason: Pain Referrals: PRIMARY CARE, [Primary Care Provider] - 3-5 Days Time of Disposition: 10:52
--- NOTE | 2016-11-15 10:47 | XRay Report ---
ROUTINE CHEST, TWO VIEWS: HISTORY: Difficulty in breathing, cough. There is mild hyperinflation. The trachea, heart, mediastinal contour, lung madden and bony thorax are unremarkable. No significant change since 02/12/16. IMPRESSION: Mild hyperinflation. No acute cardiopulmonary process.
[2016-11-15 11:06] VITALS: BP 111/72
== END 2016-11-15 11:05 | disposition home or self-care (01) ==
LOC: ED 01:00
DX: S81.852A Open bite, left lower leg, initial encounter (principal); J20.9 Acute bronchitis, unspecified; I25.2 Old myocardial infarction; F17.200 Nicotine dependence, unspecified, uncomplicated; W54.0XXA Bitten by dog, initial encounter; Y93.9 Activity, unspecified; Y92.9 Unspecified place or not applicable; Y99.9 Unspecified external cause status
CPT/HCPCS: 36415; 71020; 80048; 80053; 81001; 81025; 83690; 84484; 85025; 93005; 93010; 99285

== ENCOUNTER 2016-11-15 19:03 | Emergency (ER) | payer OTHER ==
[2016-11-15] MEDS ORDERED: TYLENOL/CODEINE PO ONE (22:52)
--- NOTE | 2016-11-15 23:20 | Emergency Department Report ---
HPI - General Chief Complaint: Upper Respiratory Infection Time Seen by Provider: 11/15/16 22:27 - HPI HPI: She is a 46-year-old female with prior psych history of depression who reports presents to the ED after being seen earlier today 12 hours ago by ED physician presents complaining of sore throat and bloody sputum productive cough 3 days. Patient states she live at home by herself in an apartment. Patient states she is having suicidal ideations with thoughts of stepping in front of a car that started yesterday. Patient states she is suicidal at the moment and does not feel safe going home. Patient states she is seen by [facility] in [place]. She also mentions that she was bit by the neighbor's dog yesterday and is unsure of the vaccination status. She is reports she is to take Risperdal and Effexor and has not taken her medication for the past 2 months. Patient states she has no plan or any homicidal ideations. ED Past Medical Hx - Past Medical History Previous Medical History?: Yes Hx Heart Attack/AMI: Yes (2014) Hx Psychiatric Treatment: Yes (PARANOID schizophrenia, bipolar) Additional medical history: High cholesterol - Surgical History Past Surgical History?: Yes Hx Breast Surgery: Yes (augmentation) Additional Surgical History: L leg-ortho. cesearen x2 - Social History Smoking Status: Current Every Day Smoker Substance Use Type: None - Medications Home Medications: Home Medications Medication Instructions Recorded Confirmed Last Taken Type No Known Home Medications [No 11/16/16 11/16/16 Unknown History Reported Home Medications] ED Review of Systems ROS: Stated complaint: DIFF BREATHING/FEVER Other details as noted in HPI Constitutional: denies: chills, fever Eyes: denies: eye pain, eye discharge, vision change ENT: throat pain. denies: ear pain, dental pain, hearing loss, epistaxis Respiratory: cough. denies: shortness of breath, wheezing Cardiovascular: denies: chest pain, palpitations Endocrine: no symptoms reported Gastrointestinal: denies: abdominal pain, nausea, vomiting, diarrhea, constipation Genitourinary: denies: urgency, dysuria, discharge Musculoskeletal: denies: back pain, joint swelling, arthralgia Skin: denies: rash, lesions Neurological: denies: headache, weakness, paresthesias Psychiatric: depression, suicidal thoughts. denies: anxiety, auditory hallucinations, visual hallucinations, homicidal thoughts Hematological/Lymphatic: denies: easy bleeding, easy bruising Physical Exam - Physical Exam Vital Signs: Vital Signs 11/15/16 19:16 Temperature 98.2 F Pulse Rate 90 Respiratory 20 Rate Blood Pressure 119/79 O2 Sat by Pulse 98 Oximetry Physical Exam: GENERAL: Alert and oriented x3, no apparent distress, Normal Gait, atraumatic HEAD: Head is normocephalic and a-traumatic. EYES: Extra ocular muscles are intact. Pupils are equal, round, and reactive to light and accommodation. EARS: symetrical, atraumatic, non tender, ear canal clear and moderate cerumen, tympanic membrance non inflamed. gross auditory nml bilaterally. MOUTH:Mouth is well hydrated and without lesions. Tonsils nonerythematous or swollen, Uvula midline, Tongue not elevated. Mucous membranes are moist. Posterior pharynx clear, no exudate or lesions. Patent airways. LUNGS: Symetrical with respiration, No wheezing, no rales or crackles, CTAB. HEART: S1, S2 present, regular rate and rhythm without murmur, no rubs, no gallops. NEUROLOGIC: The patient is cooperative with no focal neurologic deficits. Cranial nerves II through XII are grossly intact. Normal speech. PSYCHIATRIC: Mood is congruent with affect, admits suicidal ideations and thoughts but denies homicidal ideations. SKIN: Warm and dry, No lesions, No ulceration or induration present. ED Course Vital Signs 11/15/16 19:16 Temperature 98.2 F Pulse Rate 90 Respiratory 20 Rate Blood Pressure 119/79 O2 Sat by Pulse 98 Oximetry ED Medical Decision Making - Lab Data Result diagrams: 11/16/16 00:40 11/16/16 00:40 - Medical Decision Making 46-year-old female presents with suicidal ideation She had been seen earlier about 12 hours ago by ED physician. Mental health contacted by financial secretary Discussed case with attending Dr. García. patient is being transferred to Main ED. Checks x-ray previously completed shows mild hyperinflation otherwise normal no cardiopulmonary process. Patient to be seen and evaluated by attending Dr. García Patient placed and 1013 and will be evaluated by mental health and then transferred to facility Mental health protocol was ordered Critical care attestation.: If time is entered above; I have spent that time in minutes in the direct care of this critically ill patient, excluding procedure time. ED Disposition Clinical Impression: Suicidal ideation Dog bite of calf Qualifiers: Encounter type: subsequent encounter Laterality: left Qualified Code(s): S81.852D - Open bite, left lower leg, subsequent encounter Is pt being admited?: No Does the pt Need Aspirin: No Condition: Stable Referrals: PRIMARY CARE,MD [Primary Care Provider] - 3-5 Days
[2016-11-15] MEDS ORDERED: RABAVERT RABIES VACCINE(PCEC) IM ONE (23:30)
[2016-11-15] MEDS ORDERED: BOOSTRIX IM ONE (23:30)
--- NOTE | 2016-11-16 00:31 | Emergency Department Report ---
Blank Doc - Documentation Documentation: Room 24 Agent discussed with LAURITA Gan. The patient admits to suicidal ideation for the past 2 days with plantar step out into traffic. The patient states she's been off her psychiatric medications for the past 2 months. Patient states she has attempted to harm herself in the past by hanging. Patient denies any active attempts recently. Physical Exam: Pulmonary: Occasional cough with clear to auscultation Cardiovascular: Regular rate and rhythm no murmurs rubs or gallops Abdominal: Abdomen soft nontender nondistended Neurological: GCS 15 Plan: Patient is placed on 1013 and awaiting image evaluation and transfer to psychiatric facility
[2016-11-16 00:57] LABS: Basophils % (Auto) 0.5 % (0.0-1.8); Eosinophils % (Auto) 1.8 % (0.0-4.3); Hematocrit 36.9 % (30.3-42.9); Hemoglobin 12.2 gm/dl (10.1-14.3); Mean Corpuscular HGB Conc 33 % (30-34); Mean Corpuscular Hemoglobin 30 pg (28-32); Mean Corpuscular Volume 92 fl (79-97); Platelet Count 264 K/mm3 (140-440); Red Blood Count 4.03 M/mm3 (3.65-5.03); Red Cell Distribution Width 14.4 % (13.2-15.2); White Blood Count 8.9 K/mm3 (4.5-11.0)
[2016-11-16 01:23] LABS: Urine Drugs of Abuse Note Disclamer
[2016-11-16 01:30] LABS: Bacteria,Urine 2+ /HPF (Negative); Bilirubin,Urine NEG (Negative); Blood,Urine SM (Negative); Ketones,Urine NEG (Negative); Leukocyte Esterase,Urine LG (Negative); Mucus,Urine FEW /HPF; Nitrite,Urine NEG (Negative); Protein,Urine <15 mg/dL mg/dL (Negative); Urobilinogen,Urine < 2.0 mg/dL (<2.0)
[2016-11-16 02:10] LABS: Anion Gap 15 mmol/L; BUN/Creatinine Ratio 16.66; Blood Urea Nitrogen 10 mg/dL (7-17); Calcium 8.6 mg/dL (8.4-10.2); Carbon Dioxide 28 mmol/L (22-30); Chloride 99.7 mmol/L (98-107); Glucose 103 mg/dL (65-100); Potassium 4.1 mmol/L (3.6-5.0); Sodium 139 mmol/L (137-145)
--- NOTE | 2016-11-16 13:43 | Consultation ---
History of Present Illness - Reason for Consult Consult date: 11/16/16 Reason for consult: psychiatric evaluation - Chief Complaint Chief complaint: "I wanted to run in traffic" 46 year old white female seen in the ER for psychiatric evaluation. She presented to the ER initially for respiratory complaints and productive cough. She was treated for dog bite 11/15/16 also. 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 She has been off her medication of Risperdal x 2 months. She was unable to get to an outpatient psychiatric provider following her recent hospitalization. She relapsed on methamphetamine and reports becoming suicidal when coming off of it. She describes the SI as having a plan of running into traffic. She states those thoughts have now lessened but she reports being depressed, hopeless, and helpless. She endorses paranoia and recent AH to harm herself. Last use of methamphetamine and alcohol was 3 days ago. She reports drinking 5 beers per week and denies regular/daily alcohol use. No withdrawal symptoms reported and no signs observed. Medications and Allergies Allergies Allergy/AdvReac Type Severity Reaction Status Date / Time No Known Allergies Allergy Verified 08/29/16 17:51 Home Medications Medication Instructions Recorded Confirmed Last Taken Type No Known Home Medications [No 11/16/16 11/16/16 Unknown History Reported Home Medications] Past psychiatric history - Past Medical History Past Medical History: other (treated for dog bite in ER ) Past Surgical History: Other (breast augmentation) Mental Status Exam - Vital signs Last Vital Signs Temp 98.2 F 11/15/16 19:16 Pulse 111 H 11/16/16 10:15 Resp 20 11/16/16 10:15 BP 130/69 11/16/16 10:15 Pulse Ox 98 11/16/16 10:15 - Exam Orientation: time, place, person Affect: depressed Mood: congruent with affect Thought content: paranoia Thought Process: Intact Perceptions: auditory, hallucinations Speech: normal rate and pattern Concentration: focused Motor activity: normal Level of consciousness: alert Memory: Intact Sleep Symptoms: Difficulty Falling Asleep Appetite: decreased Interaction: cooperative Results Result Diagrams: 11/16/16 00:40 11/16/16 00:40 Abnormal lab results 11/16/16 11/16/16 11/16/16 Range/Units 00:40 00:40 00:40 Lymph % (Auto) 11.2 L (13.4-35.0) % Mercer % (Auto) 10.8 H (0.0-7.3) % Lymph # 1.0 L (1.2-5.4) K/mm3 Mercer # 1.0 H (0.0-0.8) K/mm3 Seg Neutrophils % 75.7 H (40.0-70.0) % Creatinine 0.6 L (0.7-1.2) mg/dL Glucose 103 H (65-100) mg/dL Urine WBC (Auto) (0.0-6.0) /HPF Salicylates < 0.3 L (2.8-20.0) mg/dL // Range/Units 01:17 Lymph % (Auto) (13.4-35.0) % Mercer % (Auto) (0.0-7.3) % Lymph # (1.2-5.4) K/mm3 Mercer # (0.0-0.8) K/mm3 Seg Neutrophils % (40.0-70.0) % Creatinine (0.7-1.2) mg/dL Glucose (65-100) mg/dL Urine WBC (Auto) 10.0 H (0.0-6.0) /HPF Salicylates (2.8-20.0) mg/dL All other labs normal. Assessment and Plan Assessment and plan: Impression: suicidal ideation with a plan Methamphetamine use Cannabis use UDS positive for opiates-denies use Unspec. mood disorder-severity likely exacerbated by illicit drug use r/o bipolar d/o Psychotic symptoms present, likely related to stimulant use Recommendations: 1013, transfer to inpatient psychiatric facility for stabilization Restart home medication of Risperdal 1mg hs for mood/psychotic symptoms
--- NOTE | 2016-11-18 09:45 | Progress Note ---
Subjective - Reason for Consult Consult date: 11/18/16 Reason for consult: Psychiatry Follow-up - Chief Complaint Chief complaint: "When can I leave" 46 year old white female seen in the ER for psychiatric evaluation. She presented to the ER initially for respiratory complaints and productive cough. Also, she was treated for dog bite 11/15/16 also. Today patient is calm, but adamant about being discharged today. She stated that she have 4 kids and want to spend Mothers's day with them. She stated that she don't take opiates, but she is positive for opiates on her UDS. She stated that she takes Risperdal and Effexor, but have not taking her medications in a couple months. She denies SI/ HI's, AVH's, depression, or sleep disturbance. She stated that she did not feel suicidal on admission. Per ER note, patient was put on 1013 for SI's (plan to walk into traffic). Patient stated that she is seen at [facility] in [place], [place]. Mental Status Exam - Vital signs Last Vital Signs Temp 98.3 F 11/17/16 22:00 Pulse 90 11/17/16 22:00 Resp 16 11/17/16 22:00 BP 110/60 11/17/16 22:00 Pulse Ox 98 11/17/16 22:00 - Exam Narrative exam: MSE: Appearance: calm, cooperative Behavior: good eye contact Speech: regular rate and tone Mood: "not depressed" Affect: mood congruent Thought Process: circumstantial Thought Content: denies SI/HI's and AVH's Motor Activity: ambulatory Cognition: a/o x3 Insight: limited Judgment: limited Assessment and Plan Impression: 46 year old white female seen in the ER for psychiatric evaluation. She presented to the ER initially for respiratory complaints and productive cough. She was treated for dog bite 11/15/16. Today patient is calm, but adamant about being discharged. She stated that she have 4 kids and want to spend Mothers's day with them. Patient has a hx of recreational drug use. Patient is no threat to self. No withdrawal symptoms noted. Recommendation/Plan: Rescind 1013. Patient will follow up with her outpatient services ([facility]) in [place], [place]. Patient prefer one on one therapy initially before she starts back on psy medication.
[2016-11-18 13:24] VITALS: BP 123/71
== END 2016-11-18 13:23 | disposition home or self-care (01) ==
LOC: ED 19:03
DX: R45.851 Suicidal ideations (principal); S81.852D Open bite, left lower leg, subsequent encounter; I25.2 Old myocardial infarction; E78.00 Pure hypercholesterolemia, unspecified; F17.200 Nicotine dependence, unspecified, uncomplicated; X58.XXXD Exposure to other specified factors, subsequent encounter
CPT/HCPCS: 36415; 80048; 80307; 81001; 81025; 85025; 90471; 90675; 90715; 96372; 99285; G0480; 80320

== ENCOUNTER 2016-11-19 06:51 | Emergency (ER) | payer SELFPAY ==
[2016-11-19 07:31] LABS: Basophils % (Auto) 0.1 % (0.0-1.8); Eosinophils % (Auto) 0.1 % (0.0-4.3); Hematocrit 37.4 % (30.3-42.9); Hemoglobin 12.4 gm/dl (10.1-14.3); Mean Corpuscular HGB Conc 33 % (30-34); Mean Corpuscular Hemoglobin 30 pg (28-32); Mean Corpuscular Volume 91 fl (79-97); Platelet Count 329 K/mm3 (140-440); Red Blood Count 4.13 M/mm3 (3.65-5.03); Red Cell Distribution Width 13.7 % (13.2-15.2); White Blood Count 7.9 K/mm3 (4.5-11.0)
[2016-11-19 07:56] LABS: Anion Gap 25 mmol/L; Blood Urea Nitrogen 6 mg/dL (7-17); Calcium 9.1 mg/dL (8.4-10.2); Carbon Dioxide 23 mmol/L (22-30); Chloride 88.2 mmol/L (98-107); Glucose 128 mg/dL (65-100); Potassium 3.9 mmol/L (3.6-5.0)
[2016-11-19 07:59] LABS: Sodium 132 mmol/L (137-145)
[2016-11-19 08:46] LABS: Urine Drugs of Abuse Note Disclamer
[2016-11-19 08:54] LABS: Bilirubin,Urine NEG (Negative); Blood,Urine NEG (Negative); Ketones,Urine TR mg/dL (Negative); Leukocyte Esterase,Urine NEG (Negative); Mucus,Urine FEW /HPF; Nitrite,Urine NEG (Negative); Protein,Urine <15 mg/dL mg/dL (Negative); Urobilinogen,Urine < 2.0 mg/dL (<2.0)
--- NOTE | 2016-11-19 10:49 | Emergency Department Report ---
HPI - General Chief Complaint: Chest Pain Time Seen by Provider: 11/19/16 10:20 - HPI HPI: Room 10 The patient is a 46-year-old female presenting with a chief complaint of suicidal ideation. The patient states she's been "really suicidal" for "a while." The patient states she has a plan of hanging herself. When asked if she didn't think recently to try to harm herself the patient replies "I don't know." She states she has not been taking her psychiatric medications. The patient admits to auditory hallucinations stating the voices are saying "a million different things." The patient also admits to a cough is occasionally productive for "a while." Location: Mental state, lungs Duration: "A while" Quality: Suicidal Severity: Severe Modifying factors: [see above] Context: [see above] Mode of transportation: [not driving] ED Past Medical Hx - Past Medical History Previous Medical History?: Yes Hx Heart Attack/AMI: Yes (2014) Hx Psychiatric Treatment: Yes (PARANOID schizophrenia, bipolar) Additional medical history: High cholesterol - Surgical History Hx Breast Surgery: Yes (augmentation) Additional Surgical History: L leg-ortho. cesearen x2 - Family History Family history: no significant - Social History Smoking Status: Unknown if ever smoked Substance Use Type: None - Medications Home Medications: Home Medications Medication Instructions Recorded Confirmed Last Taken Type No Known Home Medications [No 11/16/16 11/16/16 Unknown History Reported Home Medications] ED Review of Systems ROS: Stated complaint: CP/VOMITING/MH EVAL/SUICIDAL Other details as noted in HPI Comment: All other systems reviewed and negative Constitutional: denies: chills, fever Eyes: denies: eye pain, eye discharge, vision change ENT: denies: ear pain, throat pain Respiratory: cough Cardiovascular: denies: chest pain, palpitations Endocrine: no symptoms reported Gastrointestinal: denies: abdominal pain, nausea, diarrhea Genitourinary: denies: urgency, dysuria, discharge Musculoskeletal: denies: back pain, joint swelling, arthralgia Skin: denies: rash, lesions Neurological: denies: headache, weakness, paresthesias Psychiatric: auditory hallucinations, suicidal thoughts Hematological/Lymphatic: denies: easy bleeding, easy bruising Physical Exam - Physical Exam Vital Signs: Vital Signs 11/19/16 11/19/16 11/19/16 07:08 08:00 10:25 Temperature 98.2 F 98.1 F 97.8 F Pulse Rate 93 H 93 H 93 H Respiratory 22 16 16 Rate Blood Pressure 162/79 Blood Pressure 134/55 131/80 [Right] O2 Sat by Pulse 98 100 96 Oximetry Physical Exam: GENERAL: The patient is well-developed well-nourished female lying on stretcher not appearing to be in acute distress. [] HEENT: Normocephalic. Atraumatic. Extraocular motions are intact. Patient has moist mucous membranes. NECK: Supple. Trachea midline CHEST/LUNGS: Clear to auscultation. There is no respiratory distress noted. HEART/CARDIOVASCULAR: Regular. There is no tachycardia. There is no gallop rub or murmur. ABDOMEN: Abdomen is soft, nontender. Patient has normal bowel sounds. There is no abdominal distention. SKIN: There is no rash. There is no edema. There is no diaphoresis. NEURO: The patient is awake, alert, and oriented. The patient is cooperative. The patient has no focal neurologic deficits. The patient has normal speech MUSCULOSKELETAL: There is no evidence of acute injury. ED Course Vital Signs 11/19/16 11/19/16 11/19/16 07:08 08:00 10:25 Temperature 98.2 F 98.1 F 97.8 F Pulse Rate 93 H 93 H 93 H Respiratory 22 16 16 Rate Blood Pressure 162/79 Blood Pressure 134/55 131/80 [Right] O2 Sat by Pulse 98 100 96 Oximetry ED Medical Decision Making - Lab Data Result diagrams: 11/19/16 07:22 11/19/16 07:22 Laboratory Tests 11/19/16 11/19/16 11/19/16 07:22 07:22 07:22 WBC 7.9 RBC 4.13 Hgb 12.4 Hct 37.4 MCV 91 MCH 30 MCHC 33 RDW 13.7 Plt Count 329 Lymph % (Auto) 7.2 L Bartholomew % (Auto) 5.8 Eos % (Auto) 0.1 Baso % (Auto) 0.1 Lymph # 0.6 L Bartholomew # 0.5 Eos # 0.0 Baso # 0.0 Seg Neutrophils % 86.8 H Seg Neutrophils # 6.9 Sodium 132 L D Potassium 3.9 Chloride 88.2 L Carbon Dioxide 23 Anion Gap 25 BUN 6 L Creatinine 0.6 L Estimated GFR > 60 BUN/Creatinine Ratio 10.00 Glucose 128 H Calcium 9.1 Troponin T < 0.010 HCG, Qual Negative Urine Color Urine Turbidity Urine pH Ur Specific [place] Urine Protein Urine Glucose (UA) Urine Ketones Urine Blood Urine Nitrite Urine Bilirubin Urine Urobilinogen Ur Leukocyte Esterase Urine WBC (Auto) Urine RBC (Auto) U Epithel Cells (Auto) Urine Mucus Salicylates Urine Opiates Screen Urine Methadone Screen Acetaminophen Ur Barbiturates Screen Ur Phencyclidine Scrn Ur Amphetamines Screen U Benzodiazepines Scrn Urine Cocaine Screen U Marijuana (THC) Screen Drugs of Abuse Note Plasma/Serum Alcohol 11/19/16 11/19/16 11/19/16 07:22 07:22 07:22 WBC RBC Hgb Hct MCV MCH MCHC RDW Plt Count Lymph % (Auto) Bartholomew % (Auto) Eos % (Auto) Baso % (Auto) Lymph # Bartholomew # Eos # Baso # Seg Neutrophils % Seg Neutrophils # Sodium Potassium Chloride Carbon Dioxide Anion Gap BUN Creatinine Estimated GFR BUN/Creatinine Ratio Glucose Calcium Troponin T HCG, Qual Urine Color Urine Turbidity Urine pH Ur Specific [place] Urine Protein Urine Glucose (UA) Urine Ketones Urine Blood Urine Nitrite Urine Bilirubin Urine Urobilinogen Ur Leukocyte Esterase Urine WBC (Auto) Urine RBC (Auto) U Epithel Cells (Auto) Urine Mucus Salicylates < 0.3 L Urine Opiates Screen Urine Methadone Screen Acetaminophen < 15.0 Ur Barbiturates Screen Ur Phencyclidine Scrn Ur Amphetamines Screen U Benzodiazepines Scrn Urine Cocaine Screen U Marijuana (THC) Screen Drugs of Abuse Note Plasma/Serum Alcohol < 0.01 11/19/16 11/19/16 11/19/16 08:42 08:42 10:10 WBC RBC Hgb Hct MCV MCH MCHC RDW Plt Count Lymph % (Auto) Bartholomew % (Auto) Eos % (Auto) Baso % (Auto) Lymph # Bartholomew # Eos # Baso # Seg Neutrophils % Seg Neutrophils # Sodium Potassium Chloride Carbon Dioxide Anion Gap BUN Creatinine Estimated GFR BUN/Creatinine Ratio Glucose Calcium Troponin T < 0.010 HCG, Qual Urine Color Yellow Urine Turbidity Clear Urine pH 6.0 Ur Specific [place] 1.016 Urine Protein <15 mg/dl Urine Glucose (UA) Neg Urine Ketones Tr Urine Blood Neg Urine Nitrite Neg Urine Bilirubin Neg Urine Urobilinogen < 2.0 Ur Leukocyte Esterase Neg Urine WBC (Auto) 1.0 Urine RBC (Auto) 4.0 U Epithel Cells (Auto) 1.0 Urine Mucus Few Salicylates Urine Opiates Screen Presumptive negative Urine Methadone Screen Presumptive negative Acetaminophen Ur Barbiturates Screen Presumptive negative Ur Phencyclidine Scrn Presumptive negative Ur Amphetamines Screen Presumptive negative U Benzodiazepines Scrn Presumptive negative Urine Cocaine Screen Presumptive positive U Marijuana (THC) Screen Presumptive negative Drugs of Abuse Note Disclamer Plasma/Serum Alcohol - EKG Data -: EKG Interpreted by Me EKG shows normal: sinus rhythm Rate: normal - EKG Data When compared to previous EKG there are: previous EKG unavailable Interpretation: other (no skin changes seen) - Radiology Data Radiology results: image reviewed (chest x-ray) interpreted by me: Chest x-ray-no focal infiltrates, no pneumothorax - Differential Diagnosis suicidal ideation, schizophrenia, pneumonia, bronchitis Critical care attestation.: If time is entered above; I have spent that time in minutes in the direct care of this critically ill patient, excluding procedure time. ED Disposition Clinical Impression: Suicidal ideation, Schizophrenia Disposition: DC/TX PSY HOSP/PSY UNIT Is pt being admited?: No Does the pt Need Aspirin: No Condition: Serious Referrals: PRIMARY CARE, [Primary Care Provider] - 3-5 Days Time of Disposition: 10:51 (awaiting acceptance)
--- NOTE | 2016-11-19 11:28 | XRay Report ---
CHEST 2 VIEWS INDICATION: Cough. COMPARISON: 11/15/16 FINDINGS: PA and lateral chest radiographs again demonstrate normal cardiomediastinal silhouette and hyperexpanded, clear lungs. Mild aortic knob calcifications. Intact bones. CONCLUSION: Hyperinflation again noted without acute chest process, as described. Thank you for the opportunity to participate in this patient's care.
--- NOTE | 2016-11-19 13:41 | Consultation ---
History of Present Illness - Reason for Consult Consult date: 11/19/16 Reason for consult: Mental Health Evaluation Requesting physician: YUNI VERNON - Chief Complaint Chief complaint: "I don't want to talk about it" - History of Present Psychiatric Illness The patient is a 46-year-old female presenting with a chief complaint of suicidal ideation with a hx of substance abuse. This patient was discharged yesterday with a plan to attend rehab services in [place], [place]. Today patient is calm, but uncooperative during assessment. She stated, "I don't want to talk about it." The patient did state being suicidal today, but would not say how she would kill herself. Per the ER note, she stated that she would "hang " herself. She would not answer questions about being depressed, sleep disturbance, or having a poor appetite. She is positive for cocaine. Patient have taken Effexor and Risperdal in the past. Medications and Allergies Allergies Allergy/AdvReac Type Severity Reaction Status Date / Time No Known Allergies Allergy Verified 08/29/16 17:51 Home Medications Medication Instructions Recorded Confirmed Last Taken Type No Known Home Medications [No 11/16/16 11/16/16 Unknown History Reported Home Medications] Past psychiatric history - Past Medical History Past Medical History: No medical history, other (Elevated Ch) Past Surgical History: No surgical history - past Psychiatric treatment and history Psych: Bipolar, Depression - Social History Social history: lives with family, other Mental Status Exam - Vital signs Last Vital Signs Temp 97.8 F 11/19/16 10:25 Pulse 93 H 11/19/16 10:25 Resp 16 11/19/16 10:25 BP 131/80 11/19/16 10:25 Pulse Ox 96 11/19/16 10:25 - Exam Narrative exam: ROS (-) depression MSE: Appearance: calm, uncooperative Behavior: poor eye contact Speech: low rate and tone Mood: "I don't want to talk about it" Affect: mood congruent Thought Process: unable to assess Thought Content: denies HI's and AVH's Motor Activity: ambulatory Cognition: unable to assess Insight: unable to assess Judgment: poor Results Result Diagrams: 11/19/16 07:22 11/19/16 07:22 Abnormal lab results 11/19/16 11/19/16 11/19/16 Range/Units 07:22 07:22 07:22 Lymph % (Auto) 7.2 L (13.4-35.0) % Lymph # 0.6 L (1.2-5.4) K/mm3 Seg Neutrophils % 86.8 H (40.0-70.0) % Sodium 132 L D (137-145) mmol/L Chloride 88.2 L (98-107) mmol/L BUN 6 L (7-17) mg/dL Creatinine 0.6 L (0.7-1.2) mg/dL Glucose 128 H (65-100) mg/dL Salicylates < 0.3 L (2.8-20.0) mg/dL All other labs normal. 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 The patient is a 46-year-old female presenting with a chief complaint of suicidal ideation with a hx of substance abuse. This patient was discharged yesterday with a plan to attend rehab services in [place], [place]. Today patient is calm, but uncooperative during assessment. She stated, "I don't want to talk about it." The patient did state being suicidal today, but would not say how she would kill herself. Per the ER note, she stated that she would "hang" herself. Current mood likely exacerbated by illicit drug use. Patient positive for cocaine. Patient was positive for marijuana, amphetamines, and opiates on her last admission. DD: R/O Bipolar, Depressive DO Recommendation/Plan: Continue 1013 with placement to inpatient psy services. Discussed with her generalized coping skills. Will reevaluate patient in 24 hours.
--- NOTE | 2016-11-20 08:46 | Progress Note ---
Subjective - Reason for Consult Consult date: 11/20/16 Reason for consult: Psychiatry Follow-up - Chief Complaint Chief complaint: "I don't know what happened" The patient is a 46-year-old female presenting with a chief complaint of suicidal ideation with a hx of substance abuse. Today patient is calm and cooperative with a circumstantial thought process. Per the patient, after being discharged from [facility] 11/18/2016, she went to store and bought something to drink and that's all she remember. On admission she acknowledged SI's and positive for cocaine. She was observed eating her breakfast during our conversation. She denies SI/HI's, AVH's, depression, or sleep disturbance at this time. Patient stated that her mood is "up and down". Mental Status Exam - Vital signs Last Vital Signs Temp 97.8 F 11/19/16 13:50 Pulse 96 H 11/20/16 07:54 Resp 16 11/20/16 07:54 BP 135/76 11/20/16 07:54 Pulse Ox 96 11/20/16 07:54 - Exam Narrative exam: MSE: Appearance: calm, cooperative Behavior: good eye contact Speech: low rate and tone Mood: "okay" Affect: mood congruent Thought Process: circumstantial Thought Content: denies SI/HI's and AVH's Motor Activity: ambulatory Cognition: a/o x3 Insight: limited Judgment: limited Assessment and Plan Impression: The patient is a 46-year-old female presenting with a chief complaint of suicidal ideation with a hx of substance abuse. Today patient is calm and cooperative with a circumstantial thought process. Per the patient, after being discharged from [facility] 11/18/2016, she went to store and bought something to drink and that's all she remember. On admission she acknowledged SI 's and positive for cocaine. She denies SI/HI's. Illicit drug use (cocaine) resolving. Recommendation/Plan: Continue 1013 with possible placement to inpatient psy services. Start Risperdal 2 mg PO HS for mood and Cogentin 0.5 mg PO HS for EPS prevention. Discussed possible metabolic side effects with patient reference Risperdal.
[2016-11-20] MEDS ORDERED: COGENTIN PO SCH (22:00)
[2016-11-20] MEDS ORDERED: RisperDAL PO SCH (22:00)
--- NOTE | 2016-11-21 09:42 | Progress Note ---
Subjective - Reason for Consult Reason for consult: psych consult - Chief Complaint Chief complaint: The patient is a 46-year-old female presenting with a chief complaint of suicidal ideation with a hx of substance abuse. Patient was seenyesterday and today. She continues to have forward thinking with some goals that she wants to accomplish. She denies any SI/HI/AH/VH. She has had no issues on the unit for the last day. She notes that she would like to go to [facility]. She is tolerating the medication right now. We discussed abstaining from etoh or illicit drug use. Mental Status Exam - Vital signs Last Vital Signs Temp 98.4 F 11/21/16 09:11 Pulse 88 11/21/16 09:11 Resp 20 11/21/16 09:11 BP 111/68 11/21/16 09:11 Pulse Ox 96 11/21/16 09:11 - Exam Orientation: time, place, person Affect: normal Mood: appropriate Thought Process: Intact Perceptions: none Speech: normal rate and pattern Concentration: focused Motor activity: normal Level of consciousness: alert Memory: Intact Interaction: cooperative Mini mental status exam(if necessary): 24-30 Assessment and Plan Impression: The patient is a 46-year-old female presenting with a chief complaint of suicidal ideation with a hx of substance abuse. Today patient is doing well and is back to baseline. She denies any SI/HI/AH/VH. She is presenting with no acute risk of harm to self or others at this time. Recommendation/Plan: Rescind 1013 and proceed with dispo planning. Patient can benefit from outpatient substance and mental health treatment
[2016-11-21 10:01] VITALS: BP 111/68
== END 2016-11-21 12:43 | disposition home or self-care (01) ==
LOC: EEVIPCON 06:51 → ED 06:51
DX: F20.9 Schizophrenia, unspecified (principal); R45.851 Suicidal ideations; I25.2 Old myocardial infarction; F31.9 Bipolar disorder, unspecified; E78.00 Pure hypercholesterolemia, unspecified
CPT/HCPCS: 36415; 71020; 80048; 80307; 81001; 84484; 84703; 85025; 93005; 93010; 99285; G0480; 80320